=== PATIENT | female | born 1970 | race Caucasian/White ===

== ENCOUNTER 2017-10-11 10:37 | Emergency (ER) | payer MEDICAID ==
[~2017-10-11] VITALS: Ht 154.9 cm; Wt 54.4 kg
[~2017-10-11 10:37] MED LIST: EPZICOM1 TAB; HUMULIN R100 U/1 M1 SC; LANTI SQ
[2017-10-11 10:40] VITALS: Ht 154.9 cm; Wt 54.4 kg
[2017-10-11 11:17] LABS: CALCIUM 9.4 mg/dL (8.5-10.1); CHLORIDE SERUM 101 mmol/L (98-107); CREATININE SERUM 0.6 mg/dL (0.6-1.0); GFR1 > 60 mL/min; GLUCOSE SERUM 362 mg/dL (74-106); POTASSIUM SERUM 4.2 mmol/L (3.5-5.1); SODIUM SERUM 137 mmol/L (136-145)
[2017-10-11 11:20] LABS: BASOPHIL % 0.8 % (0-2); PLATELET COUNT 346 x10^3mcL (130-400); RED CELL DISTRIBUTION WIDTH 14.4 % (11.5-14.5)
[2017-10-11 11:24] LABS: ALKALINE PHOSPHATASE 166 U/L (46-116); ALT/SGPT 61 U/L (14-59); AST/SGOT 67 U/L (15-37); BILIRUBIN TOTAL 0.31 mg/dL (0.20-1.00); TOTAL PROTEIN, SERUM 6.8 g/dL (6.4-8.2)
[2017-10-11 11:25] LABS: ALBUMIN 3.3 g/dL (3.4-5.0)
[2017-10-11 11:32] VITALS: BP 120/88
== END 2017-10-11 12:15 | disposition home or self-care (01) ==
LOC: ED 10:37
PROVIDERS: Emergency Medicine
DX: I87.2 Venous insufficiency (chronic) (peripheral) (principal); E11.9 Type 2 diabetes mellitus without complications
CPT/HCPCS: 36415; 83880; Q0092

== ENCOUNTER 2018-05-30 13:55 | Emergency (ER) | payer OTHER ==
[~2018-05-30] VITALS: Ht 157.5 cm; Wt 50.8 kg
[2018-05-30 14:11] VITALS: Ht 157.5 cm; Wt 50.8 kg
[2018-05-30 15:08] VITALS: BP 138/86
== END 2018-05-30 15:08 | disposition home or self-care (01) ==
LOC: ED 13:55
DX: E11.9 Type 2 diabetes mellitus without complications (principal); Z76.0 Encounter for issue of repeat prescription

== ENCOUNTER 2018-07-29 22:51 | Emergency (ER) | payer OTHER ==
[~2018-07-29] VITALS: Ht 157.5 cm; Wt 51.3 kg
[2018-07-29 23:06] VITALS: BP 114/88; Ht 157.5 cm; Wt 51.3 kg
== END 2018-07-29 23:33 | disposition home or self-care (01) ==
LOC: ED 22:51
DX: E11.65 Type 2 diabetes mellitus with hyperglycemia (principal); Z76.0 Encounter for issue of repeat prescription
CPT/HCPCS: 82962

== ENCOUNTER 2019-09-21 20:19 | Emergency (ER) | payer OTHER ==
[~2019-09-21] VITALS: Ht 157.5 cm; Wt 54.4 kg
[2019-09-21 20:32] VITALS: Ht 157.5 cm; Wt 54.4 kg
[2019-09-21 22:42] LABS: ALBUMIN 3.7 g/dL (3.4-5.0); ALKALINE PHOSPHATASE 136 U/L (46-116); ALT/SGPT 39 U/L (14-59); AST/SGOT 24 U/L (15-37); BILIRUBIN TOTAL 0.48 mg/dL (0.20-1.00); CALCIUM 9.8 mg/dL (8.5-10.1); CARBON DIOXIDE 21.8 mmol/L (21-32); CHLORIDE SERUM 95 mmol/L (98-107); GFR1 > 60 mL/min; POTASSIUM SERUM 5.2 mmol/L (3.5-5.1); SODIUM SERUM 133 mmol/L (136-145); TOTAL PROTEIN, SERUM 7.6 g/dL (6.4-8.2)
[2019-09-21 22:45] LABS: GLUCOSE SERUM 507 mg/dL (74-106)
[2019-09-21 23:12] VITALS: BP 127/85
== END 2019-09-21 23:12 | disposition home or self-care (01) ==
LOC: ED 20:19
PROVIDERS: Emergency Medicine
DX: E11.65 Type 2 diabetes mellitus with hyperglycemia (principal)
CPT/HCPCS: 82962; J1815; J7030